=== PATIENT | female | born 1935 | race Caucasian/White ===

== ENCOUNTER 2022-09-26 19:21 | Inpatient (IN) | payer MEDICARE, SELFPAY ==
[2022-09-26 19:33] VITALS: BP 132/49; PULSE 78; RESP 20; TEMP 39.1; O2SAT 97
--- NOTE | 2022-09-26 20:08 | ED.GENADUL_ITS ---
Discharge Plan Disposition Patient Disposition: Admit to [facility] Condition: Fair Discharge Details Clinical Impression: COVID-19 Primary Care Provider: [place],Local ED Provider: Phillip Zarate Medical Decision Making Patient presenting to ED with generalized weakness, malaise, some confusion per family. She is having some urinary urgency and frequency. She is febrile here to 102.3. Heart rate and blood pressure. She does have rales and rhonchi at the bases bilaterally but also has history of pulmonary fibrosis. IV established and fluids started. Laboratory studies, urinalysis, blood cultures, chest x-ray ordered. Patient's white count and hemoglobin are normal. Patient's lactic acid is normal. Chemistries and liver function normal. Urinalysis does not show evidence of infection. Chest x-ray per my read is negative for infiltrate. I have sent a nasal swab. Nasal swab is positive for COVID. Given the patient's inability to ambulate and severe weakness we will plan admission. She is not requiring oxygen at this point. Patient will be given IV dose of remdesivir and admitted to [facility] for further management. Lab Data Lab results reviewed: Yes I reviewed the patient's lab results. HPI General Mode of arrival: wheelchair . Date/Time Provider Initiated Documentation: 09/26/22 19:49 . Limitations to Documentation: no limitations . Information obtained by: patient and family . HPI Narrative: Patient presents to ED with generalized weakness and malaise over the last 24 hours. She is able to ambulate with walker on most days. She has not really been able to ambulate today at all. She had a little bit of a sore throat but denies any headache, cough. Feels a little short of breath with exertion today. Had a little bit of chest discomfort yesterday. Denies any abdominal pain, vomiting, diarrhea. Has been experiencing urinary frequency and urgency but no dysuria. She denies any back pain. General Stated Complaint: GenMedical POONAM: 3 Review of Systems Narrative: See HPI PFSH All Active Problems (Updated 09/26/22 @ 22:31 by Phillip Zarate MD) COVID-19 (Acute) Medical History (Updated 09/26/22 @ 22:31 by Phillip Zarate MD) CAD (coronary artery disease) HTN (hypertension) Hypercholesterolemia Pulmonary fibrosis Rheumatoid arthritis Surgical History History of heart artery stent S/P hysterectomy Social History Smoking risk assessment performed?: No Alcohol Intake: never Drug use: Never Substance use type: does not use Housing: house Do you feel safe at home: Yes Do you feel safe in your relationship?: Yes Exam Narrative Exam Narrative: Const: WDWN elderly female in NAD. HEENT: NC/AT. Normal facial exam. Eyes: Normal conjunctiva and sclera. Neck: Supple. Trachea midline. Lungs: Normal respiratory effort. Lungs with rales/rhonchi in bases. Cor: RRR with murmur. Good radial pulses. GI: Soft. NT/ND. No guarding or rebound. Back: No CVAT Neuro: A+O x 3. Normal speech, mentation, gait. Cranial nerves II - XII grossly intact. No gross motor or sensory deficit. General weakness. Ext: No C/C/E. Skin: Warm and dry without rash. Course Vital Signs Vital signs: Vital Signs Temperature 102.3 F H 09/26/22 19:33 Pulse 78 09/26/22 19:33 Respiratory Rate 20 09/26/22 19:33 Blood Pressure 132/49 L 09/26/22 19:33 Pulse Oximetry 97 09/26/22 19:33 Temperature 102.3 F H 09/26/22 19:33 Temperature Source Tympanic 09/26/22 19:33 Pulse 78 09/26/22 19:33 Respiratory Rate 20 09/26/22 19:33 Blood Pressure 132/49 L 09/26/22 19:33 Pulse Oximetry 97 09/26/22 19:33 Oxygen Delivery Method Room Air 09/26/22 19:33 Oxygen Flow Rate 0 09/26/22 19:33
[2022-09-26 20:35] LABS: Lactate 0.8 mmol/L (0.6-1.4)
[2022-09-26 20:42] LABS: Abs Immature Grans 0.03 10^3/uL (0.0-0.06); Absolute Basophil Count 0.04 10^3/uL (0.0-0.2); Absolute Lymphocyte Count 1.11 10^3/uL (1.2-3.4); Absolute Monocyte Count 1.58 10^3/uL (0.1-0.8); Absolute Neutrophil Count 3.16 10^3/uL (1.2-6.7); Basophils % 0.7; Eosinophils % 1.7; HCT 39.2 % (36.0-46.0); HGB 13.2 g/dL (11.2-15.7); Immature Grans % 0.5; Lymphocytes % 18.4; MCH 32.9 pg (27.0-33.0); MCHC 33.7 % (32.0-36.0); MCV 98 fL (80-95); MPV 8.3 fL (8.0-11.0); Monocytes % 26.2; Neutrophils % 52.5; Platelet Count 237 10^3/uL (130-400); RBC 4.01 10^6/uL (3.93-5.22); RDW 13.2 % (11.7-14.6); RDW-SD 47.6 fL; WBC 6.02 10^3/uL (4.4-10.8)
[2022-09-26 20:54] VITALS: RESP 18
[2022-09-26 20:59] LABS: Bilirubin Negative (Negative); Blood Trace-intact (Negative); Clarity Clear (Clear); Glucose Negative (Negative); Ketones Trace mg/dL (Negative); Leukocyte Esterase Negative (Negative); Nitrite Negative (Negative); Specific Gravity 1.025 (1.005-1.025); Urobilinogen 0.2 mg/dL (Up to 0.2); pH 5.5 (5-8)
[2022-09-26 21:01] LABS: ALT 34 U/L (14-59); AST 21 U/L (15-37); Albumin 3.5 g/dL (3.4-5.0); Alkaline Phosphatase 61 U/L (46-116); Anion Gap 6.6 mmol/L (3-11); BUN 15 mg/dL (7-18); Bilirubin, Total 0.3 mg/dL (0.2-1.0); CO2 30.4 mmol/L (21.0-32.0); CREATININE 0.8 mg/dL (0.55-1.02); Calcium 8.4 mg/dL (8.5-10.1); Chloride 100 mmol/L (98-107); Estimated GFR 72.16 (mL/min/1.73m2); Glucose 87 mg/dL (74-106); Magnesium 1.8 mg/dL (1.8-2.4); Potassium 3.9 mmol/L (3.5-5.1); Sodium 137 mmol/L (136-145); Troponin I < 50 ng/L (<or=60)
[2022-09-26 21:13] LABS: Diff Comment Agrees w/ Instrument; RBC Morphology Normal
[2022-09-26 21:17] LABS: Bacteria Rare HPF (Negative); Crystals Negative HPF (Negative); Epithelial Cells Many HPF (Negative); WBC Negative HPF (0-5)
[2022-09-26 21:18] LABS: C & S Indicated? No/Sq. Contamination; Casts Negative LPF (Negative); Mucus Trace (Negative)
[2022-09-26] MEDS: Normal Saline 1,000 ML 1000 ML IV (21:30)
[2022-09-26] MEDS: cefTRIAXone 1 GM/50 ML BAG IVPB (21:30)
--- NOTE | 2022-09-26 21:31 | DI.RAD_ITS ---
Exam(s) XR CHEST 2V PA LATERAL EXAM: XR CHEST 2V PA LATERAL CLINICAL HISTORY: fever. TECHNIQUE: 2D digital imaging was performed. COMPARISON: No exams were available for comparison FINDINGS: 2 views: Heart size is upper normal. The mediastinum is not widened. There is mild interstitial disease peripherally, more so on the left side. No airspace pulmonary isela ma. No pleural effusions. IMPRESSION: Mild interstitial disease. Possible element of pulmonary fibrosis. Comparison to prior images would be helpful, if they exist. DATA REPOSITORY: RADIATION DOSE DELIVERED:
--- NOTE | 2022-09-26 21:56 | DI.VRAD_ITS ---
PROCEDURE INFORMATION: Exam: XR Chest Exam date and time: 09/26/2022 9:19 PM Age: 87 years old Clinical indication: Fever TECHNIQUE: Imaging protocol: Radiologic exam of the chest. Views: 2 views. Total images: 2 COMPARISON: No relevant prior studies available. FINDINGS: Lungs: Non-specific subtle interstitial prominence in both lungs suggests mild pulmonary edema, pneumonitis or scarring. No visible pulmonary consolidation. No pulmonary masses. Pulmonary vascularity is normal. Pleural spaces: No pleural effusion or pneumothorax. Heart/Mediastinum: Heart size is normal. Vasculature: Mild aortic mural calcification. Bones/joints: No acute osseous abnormalities. IMPRESSION: Non-specific subtle interstitial prominence in both lungs suggests mild pulmonary edema, pneumonitis or scarring. Dictated and Authenticated by: Danielle Holder MD. Ordering:ALIVIA Fisher MD
[2022-09-26 22:10] LABS: Influenza A PCR Negative (Negative); Influenza B PCR Negative (Negative); RSV PCR Negative (Negative); Source Nasopharynx
[2022-09-26 22:11] LABS: COVID-19 PCR Positive (Negative)
[2022-09-26] MEDS: Acetaminophen 325 MG TAB 650 MG PO (22:56)
[2022-09-26] MEDS: REMDESIVIR 200 MG in Normal Saline 250 ML 250 MG IVPB (23:28)
[2022-09-27] VITALS (11 sets, daily range): BP systolic 107–135; BP diastolic 60–71; PULSE 61–79; RESP 14–18; TEMP 36.5–37.5; O2SAT 91–96
--- NOTE | 2022-09-27 01:48 | HPE_ITS ---
Date of service: 09/26/22 Time of Service: 23:45 Assessment and Plan Assessment and plan (1) COVID-19: Start date: 09/26/22 Status: Acute Assessment and plan: This is an 87-year-old lady who has had all of her immunizations for COVID who presents with COVID-19 infection presenting with fever, chills and extreme weakness. She has a history of pulmonary fibrosis but is not hypoxic. She will be started on remdesivir but not Decadron. Supportive care with gentle hydration. She is a full code. (2) Pulmonary fibrosis: Assessment and plan: Not currently on oxygen and not hypoxic presently with COVID-19 infection. Question of pneumonitis and patient started on Rocephin with doxycycline IV to be given acutely. Follow-up clinically. Patient does not meet criteria for Decadron with no hypoxemia. Rescue inhaler/nebulizer as needed. (3) CAD (coronary artery disease), [place] coronary artery: Status: Chronic Assessment and plan: No evidence of active decompensation status post cardiac catheterization with dual antiplatelet therapy ongoing. Monitor cardiac status. (4) HTN (hypertension): Assessment and plan: Monitor with outpatient medical therapy to be continued. (5) Hypothyroidism (acquired): Status: Chronic Assessment and plan: Continue outpatient medical therapy monitoring TSH. This can be adjusted long- term as an outpatient. History of Present Illness History of Present Illness Chief Complaint: Chills and fever with weakness Narrative: This is an 87-year-old female patient who lives in [place] visiting for family reunion locally in [place]. She began to have chills the night prior to presentation and then fever with extreme weakness prompting ED evaluation. She was found to have COVID positive testing with no hypoxemia though her chest x- ray did show some mild pneumonitis. Does have a history of pulmonary fibrosis but chronically is not on any inhalers other than rescue inhalers and not on oxygen therapy. She appears frustrated with her acute situation having plans for a family reunion in the morning. She offers no other complaints being status post cardiac catheterization with stenting last fall with 2 separate catheterizations and stents in the left system further than the right system. She was having heartburn type symptoms which improved with standing. She is on antiplatelet therapy with increased bruising of her extremities on Plavix and aspirin. She offers no other complaints and overall is highly functional for age and living independently. She has been in [place] since 09/23/2022. She is a full code. Review of Systems Narrative: 13 point review of systems otherwise unrevealing or stable. PFSH All Active Problems (Updated 09/27/22 @ 06:54 by Viet Epps) Hypothyroidism (acquired) (Chronic) CAD (coronary artery disease), [place] coronary artery (Chronic) COVID-19 (Acute) Medical History (Updated 09/27/22 @ 06:54 by Viet Epps) HTN (hypertension) Hypercholesterolemia Pulmonary fibrosis Rheumatoid arthritis Surgical History History of heart artery stent S/P hysterectomy Social History Smoking risk assessment performed?: No Alcohol Intake: never Drug use: Never Substance use type: does not use Housing: house Do you feel safe at home: Yes Do you feel safe in your relationship?: Yes Meds Allergies and Home Medications Allergies Allergy/AdvReac Type Severity Reaction Status Date / Time sulfur Allergy Uncoded 09/27/22 01:30 Home Medications Medication Instructions Recorded Confirmed Type acetaminophen 500 mg tablet 1,000 mg PO .NOON,QHS 09/27/22 09/27/22 History (Tylenol Extra Strength) aspirin 81 mg chewable tablet 81 mg PO DAILY 09/27/22 09/27/22 History calcium carbonate 600 mg-vitamin 1 tab PO BID 09/27/22 09/27/22 History D3 10 mcg (400 unit) tablet (Calcium 600 + D(3)) chlorpheniramine maleate 4 mg 4 mg PO DAILY 09/27/22 09/27/22 History tablet clopidogrel 75 mg tablet 75 mg PO DAILY 09/27/22 09/27/22 History fluticasone propionate 50 1 - 2 spray intranasal DAILY 09/27/22 09/27/22 History mcg/actuation nasal spray,suspension evkjyatr-ayqkseobda-zi glycn-C 500 1 cap PO .QAM 09/27/22 09/27/22 History mg-400 mg capsule levothyroxine 88 mcg tablet 88 mcg PO DAILY 09/27/22 09/27/22 History pantoprazole 40 mg tablet,delayed 40 mg PO DAILY 09/27/22 09/27/22 History release Exam Narrative Exam Narrative: General: Patient appears appropriate for age, alert and oriented x3 and in no a cute distress. She is weak when attempting to sit up in bed which is not her baseline. HEENT: Normocephalic, eyes with pupils equal react light symmetrically, extraocular movement intact and sclera anicteric. Oropharynx with moist mucosa and fair dentition. Neck: Supple without JVD. Back: Stooped posture without CVA tenderness. Lungs: Coarse crackles with inspiration over both lung henderson but over the bases with decreased aeration of the bases. Bronchovesicular breath sounds diffusely. No focalizing rales or rhonchi. No expiratory wheeze. Breast: Exam deferred. Heart: Regular rate and rhythm with no appreciable murmur or gallop. Abdomen: Obese contour, soft and nontender to palpation with no palpable hepatosplenomegaly. Bowel sounds positive all quadrants. Genitalia/rectal: Exam deferred. Extremities: Without clubbing, cyanosis or grossly pitting edema. Patient is obese. Good capillary refill. Skin: Normal color, hot and dry. Superficial bruising over lower extremities and upper extremities without induration. Neuro: Cranial nerves II through XII gross intact, no focal motor deficits. No tremor. Psych: Normal affect and mood. No abnormal thought processes. Easily agitated and frustrated by acute hospitalization with family plans. Remote and recent memory intact. Results Imaging Imaging Studies: Exam: XR Chest Exam date and time: 09/26/2022 9:19 PM Age: 87 years old Clinical indication: Fever TECHNIQUE: Imaging protocol: Radiologic exam of the chest. Views: 2 views. Total images: 2 COMPARISON: No relevant prior studies available. FINDINGS: Lungs: Non-specific subtle interstitial prominence in both lungs suggests mild pulmonary edema, pneumonitis or scarring. No visible pulmonary consolidation. No pulmonary masses. Pulmonary vascularity is normal. Pleural spaces: No pleural effusion or pneumothorax. Heart/Mediastinum: Heart size is normal. Vasculature: Mild aortic mural calcification. Bones/joints: No acute osseous abnormalities. IMPRESSION: Non-specific subtle interstitial prominence in both lungs suggests mild pulmonary edema, pneumonitis or scarring. Labs 09/26/22 20:30 09/26/22 20:30 Labs: Laboratory Results - last 24 hr 09/26/22 09/26/22 09/26/22 19:30 20:30 20:30 WBC RBC Hgb Hct MCV MCH MCHC RDW Plt Count MPV Immature Gran % Neutrophils % Lymphocytes % Monocytes % Eosinophils % Basophils % Nucleated RBC % Absolute Neutrophils Absolute Lymphocytes Absolute Monocytes Absolute Eosinophils Absolute Basophils RBC Morphology VBG Lactate 0.8 Sodium 137 Potassium 3.9 Chloride 100 Carbon Dioxide 30.4 Anion Gap 6.6 BUN 15 Creatinine 0.8 Est GFR (CKD-EPI 2020) 72.16 Glucose 87 Calcium 8.4 L Magnesium 1.8 Total Bilirubin 0.3 AST 21 ALT 34 Alkaline Phosphatase 61 Troponin I < 50 Total Protein 7.0 Albumin 3.5 Urine Color Yellow Urine Clarity Clear Urine pH 5.5 Ur Specific [place] 1.025 Urine Protein 100 H Urine Ketones Trace H Urine Blood Trace-intact H Urine Nitrite Negative Urine Bilirubin Negative Urine Urobilinogen 0.2 Ur Leukocyte Esterase Negative Urine RBC 3-5 H Urine WBC Negative Ur Epithelial Cells Many Urine Crystals Negative Urine Bacteria Rare Urine Casts Negative Urine Mucus Trace Ur Culture Indicated? No/Sq. Contamination Urine Glucose Negative COVID-19 Source SARS-CoV-2 (PCR) Influenza Type A (PCR) Influenza Type B (PCR) RSV (PCR) 09/26/22 09/26/22 20:30 21:28 WBC 6.02 RBC 4.01 Hgb 13.2 Hct 39.2 MCV 98 H MCH 32.9 MCHC 33.7 RDW 13.2 Plt Count 237 MPV 8.3 Immature Gran % 0.5 Neutrophils % 52.5 Lymphocytes % 18.4 Monocytes % 26.2 Eosinophils % 1.7 Basophils % 0.7 Nucleated RBC % 0.0 Absolute Neutrophils 3.16 Absolute Lymphocytes 1.11 L Absolute Monocytes 1.58 H Absolute Eosinophils 0.10 Absolute Basophils 0.04 RBC Morphology Normal VBG Lactate Sodium Potassium Chloride Carbon Dioxide Anion Gap BUN Creatinine Est GFR (CKD-EPI 2020) Glucose Calcium Magnesium Total Bilirubin AST ALT Alkaline Phosphatase Troponin I Total Protein Albumin Urine Color Urine Clarity Urine pH Ur Specific [place] Urine Protein Urine Ketones Urine Blood Urine Nitrite Urine Bilirubin Urine Urobilinogen Ur Leukocyte Esterase Urine RBC Urine WBC Ur Epithelial Cells Urine Crystals Urine Bacteria Urine Casts Urine Mucus Ur Culture Indicated? Urine Glucose COVID-19 Source Nasopharynx SARS-CoV-2 (PCR) Positive A Influenza Type A (PCR) Negative Influenza Type B (PCR) Negative RSV (PCR) Negative Last Vital Signs Temp 39.1 C H 09/26/22 19:33 Pulse 78 09/26/22 19:33 Resp 18 09/26/22 20:54 BP 132/49 L 09/26/22 19:33 Pulse Ox 97 09/26/22 19:33 Time Spent Time spent with Patient: >75 minutes Time was spent: preparing to see the patient(eg.review tests), obtaining and/or reviewing separately otained hiistory, ordering medications,tests, procedures, referring, communicating with other health career development coordinator/teacher, indepentently interpreting results, counseling the patient and care coordination
[2022-09-27] MEDS: DOXYCYCLINE 100 MG in Normal Saline 100 ML IVPB ×2 (03:49→16:18)
[2022-09-27] MEDS: Levothyroxine 88 MCG TAB PO (05:30)
[2022-09-27 07:09] LABS: HCT 36.3 % (36.0-46.0); HGB 12.2 g/dL (11.2-15.7); MCH 32.7 pg (27.0-33.0); MCHC 33.6 % (32.0-36.0); MCV 97 fL (80-95); MPV 8.5 fL (8.0-11.0); Platelet Count 196 10^3/uL (130-400); RBC 3.73 10^6/uL (3.93-5.22); RDW 13.3 % (11.7-14.6); WBC 5.23 10^3/uL (4.4-10.8)
[2022-09-27 07:26] LABS: ALT 27 U/L (14-59); AST 20 U/L (15-37); Alkaline Phosphatase 49 U/L (46-116); Anion Gap 6.3 mmol/L (3-11); BUN 9 mg/dL (7-18); Bilirubin, Total 0.3 mg/dL (0.2-1.0); CO2 27.7 mmol/L (21.0-32.0); CREATININE 0.6 mg/dL (0.55-1.02); Chloride 102 mmol/L (98-107); Estimated GFR 87.91 (mL/min/1.73m2); Glucose 100 mg/dL (74-106); Magnesium 1.8 mg/dL (1.8-2.4); Potassium 3.5 mmol/L (3.5-5.1); Sodium 136 mmol/L (136-145)
[2022-09-27 07:36] LABS: TSH (W/Ref FT4) 0.13 uIU/mL (0.36-3.74)
[2022-09-27 07:54] LABS: FREE T4 1.42 ng/dL (0.76-1.46)
[2022-09-27] MEDS: Aspirin 81 MG CHEW PO (08:23)
[2022-09-27] MEDS: Calcium 600mg/Vit D 200U TAB 1 TAB PO ×2 (08:23→21:15)
[2022-09-27] MEDS: Clopidogrel 75 MG TAB PO (08:24)
[2022-09-27] MEDS: Enoxaparin 40 MG/0.4 ML SYR SC (08:24)
[2022-09-27] MEDS: Pantoprazole 40 MG TABCR PO (08:25)
[2022-09-27] MEDS: Normal Saline Flush 10 ML SYR IVP ×2 (08:27→14:41)
[2022-09-27] MEDS: Polyethylene Glycol 3350 17 GM PACKET PO (08:29)
--- NOTE | 2022-09-27 09:10 | INITIAL_ITS ---
Date of service: 09/27/22 Time of Service: 09:11 Care Management Initial Assmt Initial Assessment REASON FOR HOSPITALIZATION:: Covid-19 PREVIOUS FUNCTIONAL STATUS/SOCIAL/FAMILY SUPPORTS:: Gloria lives alone in [place], [place]. She came to [place] a few days ago to attend a family reunion but the reunion has now been cancelled due to her becoming ill. Gloria is highly functional and independent at baseline. She enjoys playing cards, board games and bingo. 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 CURRENT FUNCTIONAL STATUS:: CM speaks with Gloria on the telephone. She advises she is feeling better and hopes to be discharged from the hospital soon as she is scheduled to fly to [place], [place], on Thursday to visit family. She is disappointed that the family reunion that was to take place in [place] this morning had to be cancelled and hopes they will be able to get together next year. ADVANCE DIRECTIVES:: None on file but patient says she has a living will. Daughter Amanda Saucedo is appointed as HCA. Has patient been provided with info about the portal/API?: No Did the patient sign up for the portal?: No CODE STATUS:: Full Code INSURANCE COVERAGE / FINANCIAL ISSUES:: Medicare and AARP Medicare Supplement. CURRENT HOME/COMMUNITY SERVICES/EQUIPMENT:: No home/community services. Patient owns a cane and a walker. She shares she has arthritis and uses a cane for ambulation. On really bad days, she uses the walker. PRIMARY CARE PHYSICIAN:: Dr. Magdaleno ([place]) POTENTIAL DISCHARGE NEEDS:: Follow up appointment with PCP. PATIENT/FAMILY EDUCATION NEEDS:: Review of discharge instructions including limitations, medications and follow up plan of care; discuss Ask Me Three. ANTICIPATED BARRIERS TO DISCHARGE:: None identified at this time. TRANSPORTATION:: Via private vehicle with family. PLAN:: Patient will be discharged with no services when medically cleared by provider. She will follow up with her PCP and plan of care as directed. She will be transported to her daughter's home by family via private vehicle when ready. CM will continue to follow. PFSH All Active Problems (Updated 09/27/22 @ 06:54 by Viet Epps) Hypothyroidism (acquired) (Chronic) CAD (coronary artery disease), [place] coronary artery (Chronic) COVID-19 (Acute) Medical History (Updated 09/27/22 @ 06:54 by Viet Epps) HTN (hypertension) Hypercholesterolemia Pulmonary fibrosis Rheumatoid arthritis Surgical History History of heart artery stent S/P hysterectomy Social History Smoking risk assessment performed?: No Alcohol Intake: never Drug use: Never Substance use type: does not use Housing: house Do you feel safe at home: Yes Do you feel safe in your relationship?: Yes
--- NOTE | 2022-09-27 12:25 | W.PM.PROGNOT ---
Date of Service Date of service: 09/27/22 Time of Service: 12:25 Assessment and Plan Assessment and plan (1) COVID-19: Start date: 09/26/22 Status: Acute Assessment and plan: Continue Remdesivir. I asked pharmacy to move up the schedule so she will get her evening dose earlier this afternoon and then tomorrow morning we will give her third dose prior to discharge. If she is not ready for discharge she will remain in complete full 5 days of remdesivir. If she is discharged home we will send her home on a 5-day course of molnupiravir Professional time spent interviewing and examining patient, discussion of goals of care with hospital team (care management, nursing and consulting professionals) was 30 minutes. (2) Pulmonary fibrosis: Assessment and plan: Not currently on oxygen and not hypoxic presently with COVID-19 infection. Question of pneumonitis and patient started on Rocephin with doxycycline IV to be given acutely. Follow-up clinically. Patient does not meet criteria for Decadron with no hypoxemia. Rescue inhaler/nebulizer as needed. (3) CAD (coronary artery disease), [place] coronary artery: Status: Chronic Assessment and plan: No evidence of active decompensation status post cardiac catheterization with dual antiplatelet therapy ongoing. Monitor cardiac status. (4) HTN (hypertension): Assessment and plan: Monitor with outpatient medical therapy to be continued. (5) Hypothyroidism (acquired): Status: Chronic Assessment and plan: Continue outpatient medical therapy monitoring TSH. This can be adjusted long-term as an outpatient. 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 Chest x-ray was consistent with pulmonary fibrosis/pneumonitis. She has had a cough that is been minimally productive of clear to white mucus. No purulent sputum or hemoptysis. Last night she was admitted to the hospital started empirically on antibiotics with Rocephin and doxycycline and put on antiviral medication Remdesivir. Patient also has a history of coronary artery disease she has had couple of previous stents last one was in January 2022 previous one was in October 2021. She is on aspirin and Plavix. Based on that she is not a candidate for Paxlovid due to interaction with Plavix. Initially nursing, the patient wanted to return home today for family reunion but her family uremia was canceled. She still feels fatigued but she was able to ambulate around the room with a walker and had no hypoxemia. She has not required any oxygen throughout her stay since last night and therefore is not on steroids. I gave her the option of returning home today on Molnupiravir vs staying and continuing Remdesivir. She opted to stay for now. I told her that if she feels remarkably better tomorrow, I could discharge home on 5 day cours of Molnupiravir. Exam Narrative Exam Narrative: Elderly white female lying in bed not wearing oxygen in no acute respiratory distress not using accessory respiratory muscles able to talk in complete paragraphs. Lungs are clear anteriorly posterior she has some fine dry rales no rhonchi or wheezes Heart is regular rate and rhythm Abdomen soft nontender nondistended normal bowel sounds Extremities without edema Objective Last Vital Signs Temp 36.5 C 09/27/22 12:24 Pulse 63 09/27/22 12:24 Resp 16 09/27/22 12:24 BP 123/64 09/27/22 12:24 Pulse Ox 95 09/27/22 12:24 Laboratory Results - last 24 hr 09/26/22 09/26/22 09/26/22 19:30 20:30 20:30 WBC RBC Hgb Hct MCV MCH MCHC RDW Plt Count MPV Immature Gran % Neutrophils % Lymphocytes % Monocytes % Eosinophils % Basophils % Nucleated RBC % Absolute Neutrophils Absolute Lymphocytes Absolute Monocytes Absolute Eosinophils Absolute Basophils RBC Morphology VBG Lactate 0.8 Sodium 137 Potassium 3.9 Chloride 100 Carbon Dioxide 30.4 Anion Gap 6.6 BUN 15 Creatinine 0.8 Est GFR (CKD-EPI 2020) 72.16 Glucose 87 Calcium 8.4 L Magnesium 1.8 Total Bilirubin 0.3 AST 21 ALT 34 Alkaline Phosphatase 61 Troponin I < 50 Total Protein 7.0 Albumin 3.5 TSH Free T4 Urine Color Yellow Urine Clarity Clear Urine pH 5.5 Ur Specific [place] 1.025 Urine Protein 100 H Urine Ketones Trace H Urine Blood Trace-intact H Urine Nitrite Negative Urine Bilirubin Negative Urine Urobilinogen 0.2 Ur Leukocyte Esterase Negative Urine RBC 3-5 H Urine WBC Negative Ur Epithelial Cells Many Urine Crystals Negative Urine Bacteria Rare Urine Casts Negative Urine Mucus Trace Ur Culture Indicated? No/Sq. Contamination Urine Glucose Negative COVID-19 Source SARS-CoV-2 (PCR) Influenza Type A (PCR) Influenza Type B (PCR) RSV (PCR) 09/26/22 09/26/22 09/27/22 20:30 21:28 06:50 WBC 6.02 RBC 4.01 Hgb 13.2 Hct 39.2 MCV 98 H MCH 32.9 MCHC 33.7 RDW 13.2 Plt Count 237 MPV 8.3 Immature Gran % 0.5 Neutrophils % 52.5 Lymphocytes % 18.4 Monocytes % 26.2 Eosinophils % 1.7 Basophils % 0.7 Nucleated RBC % 0.0 Absolute Neutrophils 3.16 Absolute Lymphocytes 1.11 L Absolute Monocytes 1.58 H Absolute Eosinophils 0.10 Absolute Basophils 0.04 RBC Morphology Normal VBG Lactate Sodium 136 Potassium 3.5 Chloride 102 Carbon Dioxide 27.7 Anion Gap 6.3 BUN 9 Creatinine 0.6 Est GFR (CKD-EPI 2020) 87.91 Glucose 100 Calcium 8.0 L Magnesium 1.8 Total Bilirubin 0.3 AST 20 ALT 27 Alkaline Phosphatase 49 Troponin I Total Protein 6.0 L Albumin 3.0 L TSH Free T4 Urine Color Urine Clarity Urine pH Ur Specific [place] Urine Protein Urine Ketones Urine Blood Urine Nitrite Urine Bilirubin Urine Urobilinogen Ur Leukocyte Esterase Urine RBC Urine WBC Ur Epithelial Cells Urine Crystals Urine Bacteria Urine Casts Urine Mucus Ur Culture Indicated? Urine Glucose COVID-19 Source Nasopharynx SARS-CoV-2 (PCR) Positive A Influenza Type A (PCR) Negative Influenza Type B (PCR) Negative RSV (PCR) Negative 09/27/22 09/27/22 06:50 06:50 WBC 5.23 RBC 3.73 L Hgb 12.2 Hct 36.3 MCV 97 H MCH 32.7 MCHC 33.6 RDW 13.3 Plt Count 196 MPV 8.5 Immature Gran % Neutrophils % Lymphocytes % Monocytes % Eosinophils % Basophils % Nucleated RBC % Absolute Neutrophils Absolute Lymphocytes Absolute Monocytes Absolute Eosinophils Absolute Basophils RBC Morphology VBG Lactate Sodium Potassium Chloride Carbon Dioxide Anion Gap BUN Creatinine Est GFR (CKD-EPI 2020) Glucose Calcium Magnesium Total Bilirubin AST ALT Alkaline Phosphatase Troponin I Total Protein Albumin TSH 0.13 L Free T4 1.42 Urine Color Urine Clarity Urine pH Ur Specific [place] Urine Protein Urine Ketones Urine Blood Urine Nitrite Urine Bilirubin Urine Urobilinogen Ur Leukocyte Esterase Urine RBC Urine WBC Ur Epithelial Cells Urine Crystals Urine Bacteria Urine Casts Urine Mucus Ur Culture Indicated? Urine Glucose COVID-19 Source SARS-CoV-2 (PCR) Influenza Type A (PCR) Influenza Type B (PCR) RSV (PCR) Time Spent with Patient Time Spent with Patient: 25-34 minutes Time was spent: preparing to see the patient(eg.review tests), obtaining and/or reviewing separately otained hiistory, ordering medications,tests, procedures, referring, communicating with other health healthcare consulting manager, indepentently interpreting results, counseling the patient and care coordination
[2022-09-27] MEDS: REMDESIVIR 100 MG in Normal Saline 250 ML 250 MG IVPB (14:41)
[2022-09-27] MEDS: Acetaminophen 325 MG TAB PO (16:20)
[2022-09-27] MEDS: cefTRIAXone 1 GM/50 ML BAG IVPB (21:15)
[2022-09-27] MEDS: Acetaminophen 500 MG TAB 1000 MG PO (21:15)
[2022-09-28] VITALS (7 sets, daily range): BP systolic 125–184; BP diastolic 74–82; PULSE 60–68; RESP 12–18; TEMP 35.8–36.6; O2SAT 96
[2022-09-28] MEDS: Levothyroxine 88 MCG TAB PO (04:11)
[2022-09-28] MEDS: DOXYCYCLINE 100 MG in Normal Saline 100 ML IVPB ×2 (04:11→16:14)
[2022-09-28] MEDS: Aspirin 81 MG CHEW PO (09:03)
[2022-09-28] MEDS: Calcium 600mg/Vit D 200U TAB 1 TAB PO ×2 (09:03→21:40)
[2022-09-28] MEDS: Clopidogrel 75 MG TAB PO (09:03)
[2022-09-28] MEDS: Fluticasone NASAL SPRAY 16 GM BTL NS (09:04)
[2022-09-28] MEDS: Pantoprazole 40 MG TABCR PO (09:04)
[2022-09-28] MEDS: Enoxaparin 40 MG/0.4 ML SYR SC (09:04)
--- NOTE | 2022-09-28 11:11 | PGE_ITS ---
Date of Service Date of service: 09/28/22 Time of Service: 11:12 Assessment and Plan Assessment and plan (1) COVID-19: Start date: 09/26/22 Status: Acute Assessment and plan: cont. Remdesivir, day#3, continue prophylaxis w/ enoxaparin 40mg sc daily; I will have nursing check orthostatic vitals and will give her a fluid bolus to see if her lightheaded feeling resolves. her BP meds have been on hold. Professional time spent interviewing and examining patient, discussion of goals of care with hospital team (care management, nursing and consulting professionals) was 30 minutes. (2) Pulmonary fibrosis: Assessment and plan: Not currently on oxygen and not hypoxic presently with COVID-19 infection. Question of pneumonitis and patient started on Rocephin with doxycycline IV to be given acutely. Follow-up clinically. Patient does not meet criteria for Decadron with no hypoxemia. Rescue inhaler/nebulizer as needed. (3) CAD (coronary artery disease), [place] coronary artery: Status: Chronic Assessment and plan: No evidence of active decompensation status post cardiac catheterization with dual antiplatelet therapy ongoing. Monitor cardiac status. (4) HTN (hypertension): Assessment and plan: Monitor with outpatient medical therapy to be continued. (5) Hypothyroidism (acquired): Status: Chronic Assessment and plan: Continue outpatient medical therapy monitoring TSH. This can be adjusted long- term as an outpatient. (6) DVT prophylaxis: Status: Acute Assessment and plan: enoxaparin 40 mg SC daily Subjective Subjective Interval history since last seen: Patient was hopeful to be discharged today but she feels worse today than yesterday. She feels lightheaded particularly when she gets out of bed. Exam Narrative Exam Narrative: Patient is not dyspneic. She appears to be in no acute distress, alert and oriented I ambulated her around the room walking by her side. She did not lose her balance however she felt very lightheaded Lungs: clear Heart: RRR Abdomen: soft, nontender Extremities: no calf or pedal edema Objective Last Vital Signs Temp 35.8 C L 09/28/22 09:13 Pulse 68 09/28/22 09:13 Resp 18 09/28/22 09:13 BP 127/79 09/28/22 09:13 Pulse Ox 96 09/28/22 09:13 Time Spent with Patient Time Spent with Patient: 25-34 minutes Time was spent: preparing to see the patient(eg.review tests), ordering medications,tests, procedures, referring, communicating with other health healthcare account manager, indepentently interpreting results, counseling the patient and care coordination
[2022-09-28] MEDS: Acetaminophen 500 MG TAB 1000 MG PO ×2 (12:09→21:40)
[2022-09-28] MEDS: REMDESIVIR 100 MG in Normal Saline 250 ML 250 MG IVPB (12:10)
[2022-09-28] MEDS: Atorvastatin 40 MG TAB PO (21:40)
[2022-09-28] MEDS: cefTRIAXone 1 GM/50 ML BAG IVPB (21:40)
[2022-09-29] VITALS (7 sets, daily range): BP systolic 145–179; BP diastolic 70–96; PULSE 60–68; RESP 12–16; TEMP 36.1–36.6; O2SAT 95–97
[2022-09-29] MEDS: DOXYCYCLINE 100 MG in Normal Saline 100 ML IVPB (04:44)
[2022-09-29] MEDS: Levothyroxine 88 MCG TAB PO (05:15)
[2022-09-29] MEDS: Pantoprazole 40 MG TABCR PO (08:49)
[2022-09-29] MEDS: Clopidogrel 75 MG TAB PO (08:49)
[2022-09-29] MEDS: Aspirin 81 MG CHEW PO (08:49)
[2022-09-29] MEDS: Calcium 600mg/Vit D 200U TAB 1 TAB PO (08:49)
[2022-09-29] MEDS: amLODIPine 5 MG TAB PO (08:49)
[2022-09-29] MEDS: Enoxaparin 40 MG/0.4 ML SYR SC (08:50)
[2022-09-29] MEDS: Metoprolol CR 25 MG TABCR PO (08:50)
[2022-09-29] MEDS: Prochlorperazine 10 MG/2 ML VIAL 5 MG IVP (08:50)
--- NOTE | 2022-09-29 08:55 | W.PM.PROGNOT ---
Date of Service Date of service: 09/29/22 Time of Service: 08:55 Assessment and Plan Assessment and plan (1) COVID-19: Start date: 09/26/22 Status: Acute Assessment and plan: cont. Remdesivir, day#4, continue prophylaxis w/ enoxaparin 40mg sc daily; given her dose of Compazine we will see if this resolves her nausea. As her blood pressures have become elevated I resumed her amlodipine. Professional time spent interviewing and examining patient, discussion of goals of care with hospital team (care management, nursing and consulting professionals) was 30 minutes. (2) Pulmonary fibrosis: Assessment and plan: Not currently on oxygen and not hypoxic presently with COVID-19 infection. Question of pneumonitis and patient started on Rocephin with doxycycline IV to be given acutely. Follow-up clinically. Patient does not meet criteria for Decadron with no hypoxemia. Rescue inhaler/nebulizer as needed. (3) CAD (coronary artery disease), [place] coronary artery: Status: Chronic Assessment and plan: No evidence of active decompensation status post cardiac catheterization with dual antiplatelet therapy ongoing. Monitor cardiac status. (4) HTN (hypertension): Assessment and plan: Monitor with outpatient medical therapy to be continued. (5) Hypothyroidism (acquired): Status: Chronic Assessment and plan: Continue outpatient medical therapy monitoring TSH. This can be adjusted long-term as an outpatient. (6) DVT prophylaxis: Status: Acute Assessment and plan: enoxaparin 40 mg SC daily Subjective Subjective Interval history since last seen: Patient will be nausea this morning her episode of emesis. Appetite is depressed. She still has feelings of lightheadedness. Blood pressure is running higher today as we have been withholding her amlodipine. I resumed her amlodipine today. She was given Compazine. She is still requesting to be discharged home later today if she is feeling better. I told her that she is eating and drinking adequately she can be discharged home later this afternoon. Today is day #4 of her Remdesivir. Upon discharge I will give her a course of treatment with molnupirvir. Exam Narrative Exam Narrative: Gloria is lying in bed with the blinds closed. She got a cold washcloth over her head. She still asking if she could return home this afternoon if the nausea improves. I told her as long as she is eating and drinking adequately she could return home since she is not hypoxemic she does not require hospitalization for COVID-19. Lungs are clear anteriorly posterior she has some fine bibasilar crackles Heart is regular rate and rhythm Abdomen soft nondistended nontender No peripheral edema Objective Last Vital Signs Temp 36.5 C 09/29/22 04:47 Pulse 65 09/29/22 07:00 Resp 12 09/29/22 04:47 BP 179/80 H 09/29/22 04:47 Pulse Ox 95 09/29/22 04:47 Time Spent with Patient Time Spent with Patient: 25-34 minutes Time was spent: ordering medications,tests, procedures, referring, communicating with other health customer care professional (Discussion with nursing), indepentently interpreting results, counseling the patient and care coordination
[2022-09-29] MEDS: REMDESIVIR 100 MG in Normal Saline 250 ML 250 MG IVPB (11:27)
[2022-09-29] MEDS: Acetaminophen 500 MG TAB 1000 MG PO (11:28)
--- NOTE | 2022-09-29 16:41 | PDOC.CMDIS ---
Date of service: 09/29/22 Time of Service: 16:42 LACE Index Scoring Tool Questions: Length of Stay (in days): 3 Was the patient admitted via the E.D.?: Yes E.D. Visits: 0 Answers: Total Score: 6 Risk of Readmission: Low Risk Care Management Discharge Plan Reason for Hospitalization: Covid-19 Discharge Plan: Patient will be discharged with no services when medically cleared by provider. She will follow up with her PCP and plan of care as directed. Transport to her daughter's home via private vehicle when ready. CM provided letter listing dates of service at patient and MD request for airplane flight adjustment. Patient/Family Education Needs: Review discharge instructions, discuss Ask Me Three.
--- NOTE | 2022-09-29 17:10 | W.PM.DS.N ---
Date of service: 09/29/22 Time of Service: 17:10 DS: Diagnosis Discharge Diagnosis (1) COVID-19: Status: Acute (2) Pulmonary fibrosis: (3) CAD (coronary artery disease), [place] coronary artery: Status: Chronic (4) HTN (hypertension): (5) Hypothyroidism (acquired): Status: Chronic Discharge Plan Disposition Patient Disposition: Home Condition: Improving Discharge Details Reason For Visit: COVID-19 Admit Date/Time: 09/26/22 23:18 Admit Provider: Viet Epps Attending Provider: Viet Epps Primary Care Provider: Adamaris,[facility] Course Hospital Course: 87-year-old female non-smoker with history of coronary artery disease most recent stents placed in January 2022 currently on aspirin and Plavix and atorvastatin. She also has a history of rheumatoid arthritis complicated by pulmonary fibrosis either due to her RA or due to her methotrexate therapy which she no longer takes. Patient presented emergency department after she came to [place] from [facility] for a family reunion. She arrived in [place] September 23, 2022 and developed symptoms of fever, fatigue, dizziness and malaise and decreased appetite on September 25, 2022. She has had no cough and no shortness of breath and no chest pain. She was evaluated emergency department with a nasal PCR for SARS Cov 19 which was positive. Chest x-ray showed mild interstitial disease consistent with pulmonary fibrosis no segmental or subsegmental consolidation was seen no pleural effusion and no pulmonary edema. CBC showed normal total white count of 6000 no anemia no thrombocytopenia she has a relative lymphocytopenia with an absolute lymphocyte count of 1100. (Lower limit normal is 1200). CMP was only remarkable for mildly decreased calcium 8.4. TSH was low at 0.13 and free T4 is normal at 1.42 consistent with her history of hypothyroidism on thyroid replacement therapy. Urinalysis was unremarkable. Patient was started on remdesivir therapy receiving initial dose of 200 mg on 09/26/2022 and received subsequent doses of 100 mg daily on 09/27/2022 through 09/29/2022. As the patient was feeling improved but still feeling fatigued she requested to be discharged home. On the morning of discharge she did have an episode of nausea and vomiting which was controlled with Compazine. Although her appetite has not improved she is not short of breath and not hypoxemic as the patient feels she would sleep better at home than here in the hospital it was agreed that she should be discharged home with continued antiviral therapy with molnupirvir. Paxlovid was not chosen because of the potential interaction with her Plavix which could lower the effects of her Plavix and the patient had coronary stents within the last 6 months. Print out of the CDC's recommendations for COVID 19 isolation exposure was given to the patient. As she had symptoms on 09/25/2022 which included fever and the fever abated on 09/27/2022 she is advised that she can leave her home on October 01, 2022 if her symptoms are improving but she should continue to wear high-quality mask around other people through October 05, 2022. Patient is to follow-up with her primary care provider when she arrives home in [facility]. She should remain in [place] with her family and family needs to take precautions to prevent spread of COVID-19 to themselves. Patient was given couple of N95 masks to take home with her. Home Meds and New Rx's Prescriptions: New molnupiravir 200 mg capsule 800 mg PO Q12H 5 Days Qty: 40 0RF prochlorperazine maleate [Compazine] 5 mg tablet 5 mg PO QID PRNQty: 12 0RF Continued chlorpheniramine maleate 4 mg Tablet 4 mg PO DAILY clopidogrel 75 mg tablet 75 mg PO DAILY Patient Comments: TAKE 1 TABLET BY MOUTH EVERY DAY acetaminophen [Tylenol Extra Strength] 500 mg Tablet 1,000 mg PO .NOON,QHS levothyroxine 88 mcg tablet 88 mcg PO DAILY Patient Comments: TAKE 1 TABLET BY MOUTH EVERY MORNING pantoprazole 40 mg tablet,delayed release (DR/EC) 40 mg PO DAILY Patient Comments: TAKE 1 TABLET BY MOUTH DAILY aspirin 81 mg Tablet,Chewable 81 mg PO DAILY fluticasone propionate 50 mcg/actuation spray,suspension 1 - 2 spray INTRANASAL DAILY Patient Comments: SHAKE AND USE 1 SPRAY IN EACH NOSTRIL EVERY DAY [id number] glycn-C 500-400 mg Capsule 1 cap PO .QAM calcium carbonate-vitamin D3 [Calcium 600 + D(3)] 600 mg-10 mcg (400 unit) Tablet 1 tab PO BID atorvastatin 40 mg Tablet 40 mg PO QHS metoprolol succinate 25 mg Tablet Extended Release 24 Hr 25 mg PO DAILY amlodipine 2.5 mg Tablet 2.5 mg PO DAILY Discharge Instructions Instructions: COVID-19 (Coronavirus Disease 2019) (DC), COVID-19: Slow the Coronavirus Spread (DC), Face Coverings (Masks) and COVID-19 (DC) Additional Instructions: See CDC website instructions regarding isolation and masking while you are under treatment for COVID-19. We have given you a copy of the guidelines. https://www.cdc.gov/coronavirus/2019-ncov/your-health/isolation.html Stand Alone Forms: Nursing Discharge Form Referrals: No,Local [Primary Care Provider] - (Follow up with you PCP when you get Home) Activity:: home isolation per [facility] Equipment/Supplies:: No Equipment Needed Diet:: Normal Diet Discharge Orders Discharge Orders: Discharge Order (Routine); Ordered 09/29/22 Ordered By: Tim Miranda DS: Summary Time Spent with Patient providing and/or coordinating discharge services: Greater than 30 minutes Status at Discharge Functional status at discharge: independent ambulation Overall status at discharge: patient is progressing back to baseline Mental Status: mental status grossly normal Speech and Movement: speech and movement normal Mood: congruent mood Affect: normal affect Exam Narrative Exam Narrative: Gloria is lying in bed with the blinds closed. Lungs are clear anteriorly posterior she has some fine bibasilar crackles Heart is regular rate and rhythm Abdomen soft nondistended nontender No peripheral edema Psych Mental Status: mental status grossly normal Speech and Movement: speech and movement normal Mood: congruent mood Affect: normal affect DS: Data Vitals/I&O Vitals and I&O: Vital Signs Temperature 36.6 C 09/29/22 15:36 Temperature Source Tympanic 09/29/22 12:05 Pulse 64 09/29/22 15:36 Pulse Rhythm Regular 09/28/22 22:21 Respiratory Rate 16 09/29/22 15:36 Respiratory Effort Normal 09/29/22 15:16 Respiratory Depth Normal 09/29/22 15:16 Respiratory Pattern Normal 09/29/22 15:16 Blood Pressure 162/79 H 09/29/22 15:36 Pulse Oximetry 96 09/29/22 15:36 Oxygen Delivery Method Room Air 09/29/22 15:36 Oxygen Flow Rate 0 09/29/22 15:36 Pain Level 0 09/29/22 07:30 Comment BP called over radio 09/29/22 15:36 Intake & Output 09/28/22 09/29/22 09/29/22 23:59 11:59 23:59 Intake Total 1420 / 1810 100 / 350 250 / 350 Balance 1420 / 1810 100 / 350 250 / 350 Intake: IV 400 / 550 100 / 350 250 / 350 Oral 1020 / 1260 Other: Urine Appearance Clear Clear Clear Comment pT stated they were up to void afterlunch Voiding Methods Toilet Data Completed and Pending Labs on day of discharge: Preliminary micro results at discharge 09/26/22 20:59 Blood Culture - Preliminary Blood NO GROWTH 48 HOURS 09/26/22 20:51 Blood Culture - Preliminary Blood NO GROWTH 48 HOURS PFSH All Active Problems DVT prophylaxis (Acute) Hypothyroidism (acquired) (Chronic) CAD (coronary artery disease), [place] coronary artery (Chronic) COVID-19 (Acute) Medical History HTN (hypertension) Hypercholesterolemia Pulmonary fibrosis Rheumatoid arthritis Surgical History History of heart artery stent S/P hysterectomy Social History Smoking risk assessment performed?: No Alcohol Intake: never Drug use: Never Substance use type: does not use Housing: house Do you feel safe at home: Yes Do you feel safe in your relationship?: Yes Time Spent with Patient Time Spent with Patient: 45-69 minutes Time was spent: preparing to see the patient(eg.review tests), ordering medications,tests, procedures, referring, communicating with other health resident caregiver, indepentently interpreting results, counseling the patient and care coordination
== END 2022-09-29 17:40 | disposition home or self-care (01) | DRG 179 ==
LOC: ER 23:31 → MS 09-27 01:39
PROVIDERS: Admitting Provider Family Medicine; Emergency Provider Emergency Medicine; Visit Provider Family Medicine
DX: U07.1 COVID-19 (principal); J84.10 Pulmonary fibrosis, unspecified; I25.10 Atherosclerotic heart disease of native coronary artery without angina pectoris; E03.9 Hypothyroidism, unspecified; I10 Essential (primary) hypertension; E78.00 Pure hypercholesterolemia, unspecified; M06.9 Rheumatoid arthritis, unspecified; Z95.5 Presence of coronary angioplasty implant and graft; R42 Dizziness and giddiness; R11.2 Nausea with vomiting, unspecified; D72.810 Lymphocytopenia
CPT/HCPCS: 36415; 80053; 85027; 87040; 87637; J1650; 71046; 81003; 81015; 83605; 83735; 84439; 84443; 84484; 85025; 99223; 99232; 99239; J0248; J0696; J0780